=== PATIENT | male | born 1925 | race Caucasian/White ===

== ENCOUNTER 2017-04-02 07:14 | Emergency (ER) | payer MEDICARE ==
[~2017-04-02] VITALS: Ht 167.6 cm; Wt 68.2 kg
[~2017-04-02 07:14] MED LIST: AMOXICILLIN500 MG OR; CIPROFLOXACN500 MG PO; CLARITIN-D1 TA2 PO; CYCLOBENZAPR10 MG PO; DONEPEZIL5 MG PO; EC-NAPROSYN375 MG PO; FISH OIL1000 MG OR; FLONASE SPRAY50 MCG; HALFPRIN162 MG OR; LORTAB 5/3255 MG PO; Levaquin PO; MEDDOSEPAK PO; METOPROL TAR25 M1 PO; METOPROL TAR25 MG PO; MULTI VIT PO; NAPROSYN250 MG PO; NAPROXEN375 MG PO; NORCO1 TA1 PO; OMEGA 31000 MG PO; OXYCO/APAP1 TA5 PO; PREDNISONE20 MG OR; PROAIR HFA IN; ROBITUSSIN AC10 ML PO; TAMSULOSIN0.4 MG PO; TERAZOSIN1 MG PO; ULTRAM50 M1 PO; ULTRAM50 MG PO; VESICARE5 MG PO; ZOFRAN ODT8 MG SL; ZOFRAN4 MG/TAB PO; ZOLPIDEM5 MG PO; [UNRECOGNIZED DRUG - REMARK]
[2017-04-02 07:33] VITALS: BP 144/67
[2017-04-02] MEDS ORDERED: AMBIEN10 MG PO (07:34)
== END 2017-04-02 07:53 | disposition home or self-care (01) ==
LOC: ED 07:14
DX: G47.00 Insomnia, unspecified (principal); I25.10 Atherosclerotic heart disease of native coronary artery without angina pectoris; E78.5 Hyperlipidemia, unspecified; G20 Parkinson's disease; F02.80 Dementia in other diseases classified elsewhere, unspecified severity, without behavioral disturbance, psychotic disturbance, mood disturbance, and anxiety; M48.00 Spinal stenosis, site unspecified; Z95.5 Presence of coronary angioplasty implant and graft

== ENCOUNTER 2017-04-11 23:58 | Inpatient (IN) | payer MEDICARE ==
[~2017-04-11] VITALS: Ht 182.9 cm; Wt 124.0 kg
[~2017-04-11 23:58] MED LIST changes: +AMBIEN10 MG PO
[2017-04-12] VITALS (16 sets, daily range): BP systolic 90–148; BP diastolic 60–84
[2017-04-12 02:41] LABS: HEMATOCRIT 50.8 % (39.0-50.0); HEMOGLOBIN 16.9 g/dl (14.0-18.0); IMMATURE GRANULOCYTES 0.3 % (0.0-1.0); MEAN CELL VOLUME 91.7 fL CALC (80.0-100.0); MEAN CORPUSCULAR HGB 30.5 pG CALC (26.0-32.0); MEAN CORPUSCULAR HGB CONC 33.3 g/L CALC (32.0-36.0); NEUT# 7.47 thou/uL (1.82-7.42); RED BLOOD COUNT 5.54 mill/uL (4.70-6.10); RED CELL DISTRI WIDTH 14.4 % (11.5-15.5)
[2017-04-12 02:59] LABS: PROTHROMBIN TIME 10.9 SECONDS (9.0-12.5)
[2017-04-12 03:00] LABS: ALBUMIN 4.4 g/dL (3.2-5.0); ALKALINE PHOSPHATASE 84 u/l (38-126); ANION GAP 20 (6-22 (CALC)); BILIRUBIN, TOTAL 1.3 mg/dL (0.0-1.4); BUN 27 mg/dL (8-23); BUN/CREATININE RATIO 22 (12-20 (CALC)); CALCIUM 9.6 mg/dL (8.4-10.2); CARBON DIOXIDE 25 mmol/l (22-30); CHLORIDE 91 mmol/l (95-108); CREATININE 1.2 mg/dL (0.7-1.3); GFR 57 ML/MIN (>=60 (CALC)); GFR FOR AFR.AMER. > 60 ML/MIN (>=60 (CALC)); GLUCOSE 103 mg/dL (82-115); SGOT/AST 44 u/l (19-48); SGPT/ALT 38 u/l (11-66); SODIUM 130 mmol/l (137-146); TOTAL PROTEIN 7.6 g/dL (6.3-8.2)
[2017-04-12 03:09] LABS: MYOGLOBIN 256 ng/mL (0 - 121)
[2017-04-12 03:15] LABS: POTASSIUM 5.8 mmol/l (3.5-5.1)
[2017-04-12 04:04] LABS: URINE BLOOD DIPSTICK LARGE (NEGATIVE); URINE CLARITY CLEAR; URINE COLOR YELLOW; URINE GLUCOSE - DIPSTICK NEGATIVE (NEGATIVE); URINE KETONE 15 mg/dL (NEGATIVE); URINE LEUK ESTERASE NEGATIVE (NEGATIVE); URINE NITRITE - DIPSTICK NEGATIVE (Negative); URINE PROTEIN - DIPSTICK >=300 mg/dL (NEG-TRACE); URINE SPECIFIC GRAVITY >=1.030
[2017-04-12 04:28] LABS: URINE BILIRUBIN - DIPSTICK TRACE (NEGATIVE)
[2017-04-12 04:29] LABS: URINE BACTERIA MODERATE hpf; URINE RBC TNTC RBC/hpf (0-5)
[2017-04-12] MEDS ORDERED: DITROPAN5 MG/TA1 PO (10:18)
[2017-04-12] MEDS ORDERED: PROCHLORPER10 MG PO ×2 (10:19→13:46)
[2017-04-12] MEDS ORDERED: DULCOLAX10 MG PR (10:21)
[2017-04-12] MEDS ORDERED: LEVSIN/SL0.125 MG SL (10:23)
[2017-04-12] MEDS ORDERED: LORAZEPAM0.5 MG PO (10:24)
[2017-04-12] MEDS ORDERED: TYLENOL650 MG PR (10:26)
[2017-04-12] MEDS ORDERED: SENNA-S1 TAB PO (10:27)
[2017-04-12] MEDS ORDERED: DICLOFENAC25 MG PO (10:29)
[2017-04-12] MEDS ORDERED: LORATADINE10 M1 PO (10:31)
[2017-04-12] MEDS ORDERED: MORPHINE S20 MG/5 ML PO (10:36)
[2017-04-12] MEDS ORDERED: MS CONTIN30 MG PO (13:44)
[2017-04-12] MEDS ORDERED: ATIVAN0.5 MG PO (13:45)
[2017-04-12] MEDS ORDERED: DECADRON4 MG PO (13:47)
[2017-04-12] MEDS ORDERED: DUONEB NEB (13:49)
[2017-04-12] MEDS ORDERED: HALOPERIDOL2 MG/ML PO (14:00)
[2017-04-12] MEDS ORDERED: AZILECT0.5 MG PO (15:18)
[2017-04-12 20:55] LABS: ANION GAP 15 (6-22 (CALC)); BUN 26 mg/dL (8-23); BUN/CREATININE RATIO 28 (12-20 (CALC)); CALCIUM 8.4 mg/dL (8.4-10.2); CARBON DIOXIDE 20 mmol/l (22-30); CHLORIDE 100 mmol/l (95-108); CREATININE 0.9 mg/dL (0.7-1.3); GFR > 60 ML/MIN (>=60 (CALC)); GFR FOR AFR.AMER. > 60 ML/MIN (>=60 (CALC)); GLUCOSE 166 mg/dL (82-115); MAGNESIUM 1.8 mg/dL (1.6-2.3); POTASSIUM 4.6 mmol/l (3.5-5.1); SODIUM 130 mmol/l (137-146)
[2017-04-13] VITALS (10 sets, daily range): BP systolic 107–151; BP diastolic 58–91
[2017-04-13 06:32] LABS: ANION GAP 15 (6-22 (CALC)); BUN 24 mg/dL (8-23); BUN/CREATININE RATIO 28 (12-20 (CALC)); CALCIUM 8.5 mg/dL (8.4-10.2); CARBON DIOXIDE 22 mmol/l (22-30); CHLORIDE 100 mmol/l (95-108); CREATININE 0.8 mg/dL (0.7-1.3); GFR > 60 ML/MIN (>=60 (CALC)); GFR FOR AFR.AMER. > 60 ML/MIN (>=60 (CALC)); GLUCOSE 173 mg/dL (82-115); POTASSIUM 4.3 mmol/l (3.5-5.1); SODIUM 133 mmol/l (137-146)
[2017-04-13 06:34] LABS: HEMATOCRIT 45.3 % (39.0-50.0); HEMOGLOBIN 15.5 g/dl (14.0-18.0); IMMATURE GRANULOCYTES 0.5 % (0.0-1.0); MEAN CELL VOLUME 91.7 fL CALC (80.0-100.0); MEAN CORPUSCULAR HGB 31.4 pG CALC (26.0-32.0); MEAN CORPUSCULAR HGB CONC 34.2 g/L CALC (32.0-36.0); NEUT# 8.64 thou/uL (1.82-7.42); RED BLOOD COUNT 4.94 mill/uL (4.70-6.10); RED CELL DISTRI WIDTH 14.2 % (11.5-15.5)
[2017-04-14] VITALS (11 sets, daily range): BP systolic 113–155; BP diastolic 68–89
[2017-04-15] VITALS: BP 125/73
[2017-04-15 02:39] VITALS: BP 148/72
[2017-04-15 04:12] VITALS: BP 154/84
[2017-04-15 07:00] VITALS: BP 146/83
[2017-04-15 09:21] VITALS: BP 147/81
== END 2017-04-15 12:10 | disposition hospice, inpatient (51) | DRG 871 ==
LOC: ED 23:58 → ED-I 04-12 04:10 → ED 04-12 05:50 → ICU 04-12 05:51
PROVIDERS: Emergency Medicine; Internal Medicine; ADMIT Internal Medicine; ATTEND Internal Medicine
DX: A41.9 Sepsis, unspecified organism (principal); J69.0 Pneumonitis due to inhalation of food and vomit; N17.9 Acute kidney failure, unspecified; E87.2 Acidosis; E87.5 Hyperkalemia; E86.0 Dehydration; G20 Parkinson's disease; G30.9 Alzheimer's disease, unspecified; F05 Delirium due to known physiological condition; I48.91 Unspecified atrial fibrillation; R13.12 Dysphagia, oropharyngeal phase; E87.1 Hypo-osmolality and hyponatremia; T17.228A Food in pharynx causing other injury, initial encounter; R65.20 Severe sepsis without septic shock; I25.10 Atherosclerotic heart disease of native coronary artery without angina pectoris; T40.2X1A Poisoning by other opioids, accidental (unintentional), initial encounter; E78.5 Hyperlipidemia, unspecified; M48.00 Spinal stenosis, site unspecified; M75.101 Unspecified rotator cuff tear or rupture of right shoulder, not specified as traumatic; F02.80 Dementia in other diseases classified elsewhere, unspecified severity, without behavioral disturbance, psychotic disturbance, mood disturbance, and anxiety; H35.30 Unspecified macular degeneration; X58.XXXA Exposure to other specified factors, initial encounter; Y92.129 Unspecified place in nursing home as the place of occurrence of the external cause; Z66 Do not resuscitate; Z78.1 Physical restraint status; Z95.5 Presence of coronary angioplasty implant and graft
CPT/HCPCS: J2060; J3370; S0166